=== PATIENT | male | born 2000 | race Caucasian/White ===

== ENCOUNTER → 2024-10-31 09:47 | Outpatient (REF) | payer OTHER, MEDICAID, SELFPAY | LOC: RST 09:47 | PROVIDERS: ATTENDING PHYSICIAN Nurse Practitioner | DX: R13.10 Dysphagia, unspecified (principal) | CPT/HCPCS: 74230; 92611 ==

== ENCOUNTER 2024-12-05 11:09 | Outpatient (RCR) | payer OTHER, SELFPAY | END 2024-12-05 23:59 | disposition home or self-care (01) | LOC: RPT 11:09 | PROVIDERS: ATTENDING PHYSICIAN Nurse Practitioner | DX: R13.12 Dysphagia, oropharyngeal phase (principal); G80.9 Cerebral palsy, unspecified | CPT/HCPCS: 97167; 97535 ==

== ENCOUNTER 2025-01-05 12:01 | Outpatient (RCR) | payer OTHER, SELFPAY | END 2025-01-05 23:59 | disposition home or self-care (01) | LOC: RPT 12:01 | PROVIDERS: ATTENDING PHYSICIAN Nurse Practitioner | DX: R13.12 Dysphagia, oropharyngeal phase (principal); G80.9 Cerebral palsy, unspecified | CPT/HCPCS: 92526; 97110; 97112; 97116; 97140; 97530; 97535 ==

== ENCOUNTER 2025-02-04 12:35 | Outpatient (RCR) | payer OTHER, SELFPAY | END 2025-02-04 23:59 | disposition home or self-care (01) | LOC: RPT 12:35 | PROVIDERS: ATTENDING PHYSICIAN Nurse Practitioner | DX: G80.9 Cerebral palsy, unspecified; R13.12 Dysphagia, oropharyngeal phase; Z73.6 Limitation of activities due to disability | CPT/HCPCS: 92526; 97110; 97112; 97116; 97140; 97530; 97535; 97760 ==

== ENCOUNTER → 2025-02-24 10:19 | Outpatient (REF) | payer OTHER, SELFPAY | LOC: RST 10:19 | PROVIDERS: ATTENDING PHYSICIAN Nurse Practitioner | DX: R13.10 Dysphagia, unspecified (principal) | CPT/HCPCS: 74230; 92611 ==

== ENCOUNTER 2025-03-04 06:38 | Outpatient (RCR) | payer OTHER, SELFPAY | END 2025-03-04 23:59 | disposition home or self-care (01) | LOC: RPT 06:38 | PROVIDERS: ATTENDING PHYSICIAN Nurse Practitioner | DX: G80.9 Cerebral palsy, unspecified (principal); R13.12 Dysphagia, oropharyngeal phase; Z73.6 Limitation of activities due to disability | CPT/HCPCS: 92526; 97010; 97110; 97112; 97116; 97140; 97530; 97535 ==

== ENCOUNTER 2025-03-25 07:19 | Outpatient (RCR) | payer OTHER, SELFPAY | END 2025-03-25 23:59 | disposition home or self-care (01) | LOC: RPT 07:19 | PROVIDERS: ATTENDING PHYSICIAN Nurse Practitioner | DX: G80.9 Cerebral palsy, unspecified (principal); R13.12 Dysphagia, oropharyngeal phase; Z73.6 Limitation of activities due to disability | CPT/HCPCS: 92526; 97010; 97110; 97112; 97140; 97530; 97535 ==